=== PATIENT | female | born 1990 | race Two or more races ===

== ENCOUNTER 2023-03-27 23:45 | Emergency (ER) | payer OTHER ==
[~2023-03-27] VITALS: Ht 162.6 cm; Wt 104.0 kg
[2023-03-28 03:46] VITALS: BP 109/60
[2023-03-28] MEDS ORDERED: LORazepam 0.5 MG TAB PO ONE ×2 (04:00)
== END 2023-03-28 06:48 | disposition left against medical advice (07) ==
LOC: ER 23:45
DX: F41.9 Anxiety disorder, unspecified (principal); F41.0 Panic disorder [episodic paroxysmal anxiety]; Z53.21 Procedure and treatment not carried out due to patient leaving prior to being seen by health care provider
CPT/HCPCS: 93005